=== PATIENT | female | born 1965 | race Caucasian/White ===

== ENCOUNTER → 2016-08-15 | Outpatient (CLI) | payer OTHER | LOC: BRMIMAGING 15:03 | DX: Z12.31 Encounter for screening mammogram for malignant neoplasm of breast (principal) | CPT/HCPCS: G0202 ==

== ENCOUNTER → 2018-01-27 | Outpatient (CLI) | payer OTHER | LOC: BRMIMAGING 10:07 | PROVIDERS: ATTEND Specialist | DX: N64.4 Mastodynia (principal) | CPT/HCPCS: 76641-PO ==